=== PATIENT | male | born 2005 | race Hispanic/Latino ===

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

== ENCOUNTER 2024-03-11 19:51 | Emergency (ER) | payer BC | END 2024-03-11 21:52 | disposition home or self-care (01) | LOC: ERS 19:51 | DX: M79.671 Pain in right foot (principal); W51.XXXA Accidental striking against or bumped into by another person, initial encounter; Y93.67 Activity, basketball ==